=== PATIENT | male | born 1950 | race Caucasian/White ===

== ENCOUNTER 2017-11-08 17:09 | Observation (INO) ==
[2017-11-08] MEDS ORDERED: SODIUM CHLORIDE 0.9% 500 ML IV STA (18:42)
[2017-11-08 19:08] LABS: Basophils # 0.1 10*3/uL (0.0-0.2); Basophils % 0.5 % (0.0-0.8); Eosinophils # 0.2 10*3/uL (0.0-0.87); Eosinophils % 1.6 % (0.00-10.9); Hematocrit 36.3 VOL% (42.0-52.0); Hemoglobin 12.1 GM/DL (14.0-18.0); Immature Granulocytes % 0.6 %; Immature Granulocytes Absolute 0.06 #; Lymphocytes # 1.6 10*3/uL (1.4-4.0); Lymphocytes % 17.5 % (21.2-54.2); Mean Corpuscular HGB Conc 33.3 GM/DL (32-36); Mean Corpuscular Hemoglobin 31 PG (27-34); Mean Corpuscular Volume 92.4 FL (87-102); Mean Platelet Volume 10.1 FL (9.6-12.0); Monocytes # 0.6 10*3/uL (0.11-0.8); Monocytes % 6.3 % (1.7-12.7); Neutrophils # 6.8 10*3/uL (1.4-7.4); Neutrophils % 73.5 % (38.7-73.9); Platelet Count 356 T/CUMM (130-400); Red Blood Count 3.93 MC/CUMM (3.8-5.5); Red Cell Distribution Width 12.8 % (9.3-17.3); White Blood Count 9.3 T/CUMM (4-12)
[2017-11-08 19:14] LABS: INR 1.1; PT Patient Result 11.1 SECS
[2017-11-08 19:25] LABS: Alanine Aminotransferase 23 U/L (16-61); Albumin 3.2 G/DL (3.4-5.0); Alkaline Phosphatase 111 U/L (45-117); Aspartate Amino Transferase 30 U/L (0-37); Blood Urea Nitrogen 24 MG/DL (7-18); Calcium 9.1 MG/DL (8.5-10.1); Glucose 112 MG/DL (74-106); Osmolality,Calculated 287.1 MOS/KG (273-304); Potassium 3.4 MMOL/L (3.5-5.1); Sodium 142 MMOL/L (136-145); Total Protein 7.9 G/DL (6.4-8.3); Troponin I < 0.015 NG/ML (0.00-0.045)
[2017-11-08 21:01] LABS: Ammonia 17 UMOL/L (11-32)
[2017-11-08 21:10] LABS: Lactic Acid 2.4 MMOL/L (0.4-2.0)
[2017-11-08 21:34] LABS: Apearance,Urine CLEAR (Clear); Bilirubin,Urine Negative (Negative); Blood, Urine Negative (Negative); Glucose,Urine (UA) Negative (Negative); Ketones,Urine Negative (Negative); Nitrite,Urine Negative (Negative); Protein,Urine Negative; RBC,Urine 1 /HPF (0-4); Squamous Epithelial Cell,Urine Occasional /HPF (0-10); Urine Color Yellow (Yellow); Urine Specific Gravity 1.016 (1.001-1.035); WBC,Urine 1 /HPF (0-6)
[2017-11-08 21:54] LABS: Barbiturates Screen,Urine Negative (Negative); Benzodiazepines Screen,Urine Negative (Negative); Cannabinoid Screen,Urine Negative (Negative); Opiate Screen,Urine Negative (Negative); Phencyclidine Screen,Urine Negative (Negative)
[2017-11-09] MEDS ORDERED: ACETAMINOPHEN 325 MG TABLET PO PRN (00:41)
[2017-11-09] MEDS ORDERED: ONDANSETRON 4 MG/2 ML VIAL IV PRN (00:41)
[2017-11-09] MEDS ORDERED: ZALEPLON 5 MG CAPSULE PO PRN (00:41)
[2017-11-09] MEDS ORDERED: POTASSIUM CHLORIDE 20 MEQ TABLET PO ONE (01:00)
[2017-11-09] MEDS: PARoxetine 20 MG TABLET PO SCH ×2 (01:22→21:02)
[2017-11-09] MEDS: SODIUM CHLORIDE 0.9% 1,000 ML IV SCH ×3 (01:22→21:01)
[2017-11-09] MEDS: OLANZapine 5 MG TABLET PO SCH ×2 (01:22→21:02)
[2017-11-09 03:18] LABS: Basophils % 0.2 % (0.0-0.8); Eosinophils % 0.2 % (0.00-10.9); Hematocrit 29.7 VOL% (42.0-52.0); Immature Granulocytes % 0.3 %; Immature Granulocytes Absolute 0.03 #; Lymphocytes # 1.7 10*3/uL (1.4-4.0); Lymphocytes % 19.4 % (21.2-54.2); Mean Corpuscular HGB Conc 33.7 GM/DL (32-36); Mean Corpuscular Hemoglobin 30 PG (27-34); Mean Corpuscular Volume 89.7 FL (87-102); Monocytes # 0.7 10*3/uL (0.11-0.8); Monocytes % 8.3 % (1.7-12.7); Neutrophils # 6.2 10*3/uL (1.4-7.4); Neutrophils % 71.6 % (38.7-73.9); Platelet Count 280 T/CUMM (130-400); Red Blood Count 3.31 MC/CUMM (3.8-5.5); White Blood Count 8.7 T/CUMM (4-12)
[2017-11-09 03:34] LABS: Calcium 8.2 MG/DL (8.5-10.1); Osmolality,Calculated 285.4 MOS/KG (273-304); Potassium 3.8 MMOL/L (3.5-5.1)
[2017-11-09] MEDS: ENOXAPARIN 40 MG/0.4 ML SYRINGE SUBCUT SCH (08:55)
[2017-11-09] MEDS: CHOLECALCIFEROL 1,000 UNIT TABLET PO SCH (08:55)
[2017-11-09] MEDS: busPIRone 5 MG TABLET PO SCH ×3 (08:55→21:02)
[2017-11-09] MEDS: PANTOPRAZOLE 40 MG TABLET PO SCH (08:55)
[2017-11-10] MEDS: SODIUM CHLORIDE 0.9% 1,000 ML IV SCH (04:14)
[2017-11-10] MEDS: PANTOPRAZOLE 40 MG TABLET PO SCH (09:02)
[2017-11-10] MEDS: busPIRone 5 MG TABLET PO SCH (09:02)
[2017-11-10] MEDS: CHOLECALCIFEROL 1,000 UNIT TABLET PO SCH (09:02)
[2017-11-10] MEDS: ENOXAPARIN 40 MG/0.4 ML SYRINGE SUBCUT SCH (09:02)
[2017-11-10 12:23] VITALS: BP 146/80
== END 2017-11-10 16:21 | disposition home health service (06) ==
LOC: N.ED 17:09 → N.EDINP 17:09 → N.4E 23:57
PROVIDERS: ADMIT Hospitalist; ATTEND Hospitalist

== ENCOUNTER 2017-12-31 15:14 | Inpatient (IN) ==
[2017-12-31] MEDS ORDERED: SODIUM CHLORIDE 0.9% 1,000 ML IV ONE (18:16)
[2017-12-31 19:00] LABS: Basophils % 0.2 % (0.0-0.8); Eosinophils % 0.1 % (0.00-10.9); Hematocrit 27.9 VOL% (42.0-52.0); Hemoglobin 9.1 GM/DL (14.0-18.0); Immature Granulocytes % 0.5 %; Immature Granulocytes Absolute 0.08 #; Lymphocytes # 0.9 10*3/uL (1.4-4.0); Lymphocytes % 6.1 % (21.2-54.2); Mean Corpuscular HGB Conc 32.6 GM/DL (32-36); Mean Corpuscular Hemoglobin 29 PG (27-34); Mean Platelet Volume 9.1 FL (9.6-12.0); Monocytes # 0.9 10*3/uL (0.11-0.8); Monocytes % 5.8 % (1.7-12.7); Neutrophils # 13.4 10*3/uL (1.4-7.4); Neutrophils % 87.3 % (38.7-73.9); Platelet Count 291 T/CUMM (130-400); Red Blood Count 3.17 MC/CUMM (3.8-5.5); Red Cell Distribution Width 12.4 % (9.3-17.3); White Blood Count 15.3 T/CUMM (4-12)
[2017-12-31 19:24] LABS: Bilirubin,Total 0.7 MG/DL (0.2-1.0); Calcium 8.3 MG/DL (8.5-10.1); Osmolality,Calculated 267.4 MOS/KG (273-304); Potassium 3.4 MMOL/L (3.5-5.1); Total Protein 7.1 G/DL (6.4-8.3)
[2017-12-31 19:25] LABS: Lactic Acid 1.3 MMOL/L (0.4-2.0)
[2017-12-31 19:35] LABS: Band Neutrophils 2 % (0-10); Eosinophils 1 % (0-10); Hypochromasia Slight; Lymphocytes 7 % (20-55); Platelet Estimate Adequate; Segmented Neutrophils 87 % (50-85); Total Cells Counted 100
[2017-12-31 20:28] LABS: Apearance,Urine CLOUDY (Clear); Bacteria,Urine Many /HPF (Few); Bilirubin,Urine Negative (Negative); Blood, Urine Large mg/dL (Negative); Glucose,Urine (UA) Negative (Negative); Ketones,Urine Negative (Negative); Mucus,Urine Occasional /LPF (Occasional); Nitrite,Urine Negative (Negative); Protein,Urine 100 MG/DL; RBC,Urine 917 /HPF (0-4); Urine Color Dark yellow (Yellow); Urine Specific Gravity 1.017 (1.001-1.035); WBC,Urine 770 /HPF (0-6)
[2017-12-31] MEDS ORDERED: CLINDAMYCIN INJ 600 MG in PREMIX 1 EACH IV STA (20:34)
[2017-12-31] MEDS ORDERED: ZALEPLON 5 MG CAPSULE PO PRN (22:35)
[2018-01-01] MEDS: PARoxetine 20 MG TABLET PO SCH ×2 (00:02→21:31)
[2018-01-01] MEDS: ENOXAPARIN 40 MG/0.4 ML SYRINGE SUBCUT SCH (00:02)
[2018-01-01] MEDS: VANCOMYCIN INJ 1,000 MG in SODIUM CHLORIDE 0.9% 250 ML IV SCH ×2 (00:02→09:41)
[2018-01-01] MEDS: OLANZapine 5 MG TABLET PO SCH ×2 (00:07→21:30)
[2018-01-01] MEDS: PIPERACILLIN/TAZOBACTAM 3,375 MG in SODIUM CHLORIDE 0.9% 100 ML IV SCH ×4 (01:40→21:30)
[2018-01-01 07:22] LABS: Basophils % 0.2 % (0.0-0.8); Eosinophils % 0.1 % (0.00-10.9); Hematocrit 26.9 VOL% (42.0-52.0); Hemoglobin 8.8 GM/DL (14.0-18.0); Immature Granulocytes % 1.1 %; Immature Granulocytes Absolute 0.12 #; Lymphocytes # 0.9 10*3/uL (1.4-4.0); Lymphocytes % 7.6 % (21.2-54.2); Mean Corpuscular HGB Conc 32.7 GM/DL (32-36); Mean Corpuscular Hemoglobin 29 PG (27-34); Mean Corpuscular Volume 89.4 FL (87-102); Mean Platelet Volume 9.2 FL (9.6-12.0); Monocytes # 0.6 10*3/uL (0.11-0.8); Monocytes % 5.4 % (1.7-12.7); Neutrophils # 9.6 10*3/uL (1.4-7.4); Neutrophils % 85.6 % (38.7-73.9); Platelet Count 253 T/CUMM (130-400); Red Blood Count 3.01 MC/CUMM (3.8-5.5); Red Cell Distribution Width 12.6 % (9.3-17.3); White Blood Count 11.2 T/CUMM (4-12)
[2018-01-01 07:49] LABS: Albumin 1.8 G/DL (3.4-5.0); Bilirubin,Total 0.8 MG/DL (0.2-1.0); Calcium 8.3 MG/DL (8.5-10.1); Potassium 3.1 MMOL/L (3.5-5.1); Total Protein 6.6 G/DL (6.4-8.3)
[2018-01-01 07:58] LABS: Hypochromasia 1+; Lymphocytes 3 % (20-55); Ovalocytes Slight; Platelet Estimate Adequate; Segmented Neutrophils 92 % (50-85); Total Cells Counted 100
[2018-01-01] MEDS: busPIRone 10 MG TABLET PO SCH ×3 (09:40→21:30)
[2018-01-01] MEDS: amLODIPine 10 MG TABLET PO SCH (09:40)
[2018-01-01] MEDS: CHOLECALCIFEROL 1,000 UNIT TABLET PO SCH (09:40)
[2018-01-01] MEDS ORDERED: SKIN HEALING OINT (AQUAPHOR) 50 GM TUBE TOP PRN (14:57)
[2018-01-01] MEDS: POTASSIUM CHLORIDE 20 MEQ TABLET PO SCH (21:31)
[2018-01-02] MEDS: PIPERACILLIN/TAZOBACTAM 3,375 MG in SODIUM CHLORIDE 0.9% 100 ML IV SCH ×3 (05:04→21:06)
[2018-01-02 05:56] LABS: Calcium 7.9 MG/DL (8.5-10.1); Osmolality,Calculated 275.7 MOS/KG (273-304)
[2018-01-02] MEDS ORDERED: LIDOCAINE 1%/EPI INJ 20 ML VIAL ONE ×3 (08:54→09:51)
[2018-01-02] MEDS ORDERED: POTASSIUM CHLORIDE RIDER 200 ML IV ONE (09:00)
[2018-01-02] MEDS ORDERED: PROPOFOL 200 MG/20 ML VIAL IV ONE (10:28)
[2018-01-02] MEDS ORDERED: MIDAZOLAM 2 MG/2 ML VIAL ONE (10:29)
[2018-01-02] MEDS ORDERED: fentaNYL 100 MCG/2 ML VIAL ONE (10:29)
[2018-01-02] MEDS ORDERED: KETAMINE 500 MG/10 ML VIAL ONE (10:30)
[2018-01-02] MEDS: POTASSIUM CHLORIDE RIDER 100 ML IV SCH ×2 (10:32→12:16)
[2018-01-02] MEDS: busPIRone 10 MG TABLET PO SCH ×3 (12:24→21:06)
[2018-01-02] MEDS: CHOLECALCIFEROL 1,000 UNIT TABLET PO SCH (12:24)
[2018-01-02] MEDS: amLODIPine 10 MG TABLET PO SCH (12:24)
[2018-01-02] MEDS: SODIUM HYPOCHLORITE 0.25% IRRIG 473 ML BOTTLE TOP SCH (12:25)
[2018-01-02] MEDS: POTASSIUM CHLORIDE 20 MEQ TABLET PO SCH ×2 (12:25→21:06)
[2018-01-02] MEDS ORDERED: POTASSIUM CHLORIDE RIDER 10 MEQ in PREMIX 1 EACH IV PRN (15:27)
[2018-01-02] MEDS: PARoxetine 20 MG TABLET PO SCH (21:06)
[2018-01-02] MEDS: OLANZapine 5 MG TABLET PO SCH (21:19)
[2018-01-03] MEDS: ENOXAPARIN 40 MG/0.4 ML SYRINGE SUBCUT SCH ×2 (00:31→21:45)
[2018-01-03 04:58] LABS: Calcium 7.6 MG/DL (8.5-10.1); Osmolality,Calculated 276.5 MOS/KG (273-304); Potassium 3.4 MMOL/L (3.5-5.1)
[2018-01-03] MEDS: PIPERACILLIN/TAZOBACTAM 3,375 MG in SODIUM CHLORIDE 0.9% 100 ML IV SCH (05:17)
[2018-01-03] MEDS ORDERED: LIDOCAINE 1%/EPI INJ 20 ML VIAL ONE (08:28)
[2018-01-03] MEDS ORDERED: BUPIVACAINE 0.5% /EPI 10 ML VIAL ONE (08:28)
[2018-01-03] MEDS ORDERED: SEVOFLURANE 1 UNIT/15 MINUTE INH ONE (09:53)
[2018-01-03] MEDS ORDERED: fentaNYL 100 MCG/2 ML VIAL ONE (09:53)
[2018-01-03] MEDS ORDERED: PROPOFOL 200 MG/20 ML VIAL IV ONE (09:53)
[2018-01-03] MEDS ORDERED: ONDANSETRON 4 MG/2 ML VIAL ONE (09:53)
[2018-01-03] MEDS ORDERED: ETOMIDATE 40 MG/20 ML VIAL IV ONE (09:54)
[2018-01-03] MEDS ORDERED: SODIUM CHLORIDE 0.9% 100 ML IV ONE (09:54)
[2018-01-03] MEDS ORDERED: PHENYLEPHRINE 10 MG/1 ML VIAL IV ONE (09:54)
[2018-01-03] MEDS: busPIRone 10 MG TABLET PO SCH ×3 (10:43→21:45)
[2018-01-03] MEDS ORDERED: ceFAZolin 2,000 MG in PREMIX 1 EACH IV SCH (11:00)
[2018-01-03] MEDS: amLODIPine 10 MG TABLET PO SCH (11:29)
[2018-01-03] MEDS: POTASSIUM CHLORIDE 20 MEQ TABLET PO SCH ×2 (11:29→22:28)
[2018-01-03] MEDS: SODIUM HYPOCHLORITE 0.25% IRRIG 473 ML BOTTLE TOP SCH (11:29)
[2018-01-03] MEDS: CHOLECALCIFEROL 1,000 UNIT TABLET PO SCH (11:29)
[2018-01-03] MEDS: CIPROFLOXACIN INJ 400 MG in PREMIX 1 EACH IV SCH (12:28)
[2018-01-03] MEDS ORDERED: MAGNESIUM SULF RIDER 4 GM in PREMIX 1 EACH IV PRN (13:34)
[2018-01-03] MEDS ORDERED: MAGNESIUM SULF RIDER 2 GM in PREMIX 1 EACH IV PRN (13:34)
[2018-01-03] MEDS: AMPICILLIN/SULBACTAM 3,000 MG in SODIUM CHLORIDE 0.9% 100 ML IV SCH ×2 (15:24→21:44)
[2018-01-03] MEDS: ACETAMINOPHEN 325 MG TABLET PO PRN (17:45)
[2018-01-03] MEDS: PARoxetine 20 MG TABLET PO SCH (21:45)
[2018-01-03] MEDS: OLANZapine 5 MG TABLET PO SCH (21:46)
[2018-01-04] MEDS: CIPROFLOXACIN INJ 400 MG in PREMIX 1 EACH IV SCH ×2 (00:08→13:53)
[2018-01-04] MEDS: AMPICILLIN/SULBACTAM 3,000 MG in SODIUM CHLORIDE 0.9% 100 ML IV SCH ×4 (03:26→20:30)
[2018-01-04 08:30] LABS: Basophils % 0.2 % (0.0-0.8); Eosinophils # 0.1 10*3/uL (0.0-0.87); Eosinophils % 0.8 % (0.00-10.9); Hematocrit 22.8 VOL% (42.0-52.0); Hemoglobin 7.4 GM/DL (14.0-18.0); Immature Granulocytes % 0.7 %; Immature Granulocytes Absolute 0.07 #; Lymphocytes # 1.1 10*3/uL (1.4-4.0); Lymphocytes % 11.1 % (21.2-54.2); Mean Corpuscular HGB Conc 32.5 GM/DL (32-36); Mean Corpuscular Hemoglobin 29 PG (27-34); Mean Corpuscular Volume 90.5 FL (87-102); Mean Platelet Volume 9.3 FL (9.6-12.0); Monocytes # 0.6 10*3/uL (0.11-0.8); Monocytes % 5.6 % (1.7-12.7); Neutrophils # 8.3 10*3/uL (1.4-7.4); Neutrophils % 81.6 % (38.7-73.9); Platelet Count 296 T/CUMM (130-400); Red Blood Count 2.52 MC/CUMM (3.8-5.5); Red Cell Distribution Width 12.6 % (9.3-17.3); White Blood Count 10.1 T/CUMM (4-12)
[2018-01-04 08:56] LABS: Calcium 7.6 MG/DL (8.5-10.1); Osmolality,Calculated 275.5 MOS/KG (273-304); Potassium 3.5 MMOL/L (3.5-5.1)
[2018-01-04] MEDS: busPIRone 10 MG TABLET PO SCH ×3 (10:00→22:25)
[2018-01-04] MEDS: CHOLECALCIFEROL 1,000 UNIT TABLET PO SCH (10:00)
[2018-01-04] MEDS: POTASSIUM CHLORIDE 20 MEQ TABLET PO SCH ×2 (10:00→22:25)
[2018-01-04] MEDS: amLODIPine 10 MG TABLET PO SCH (10:00)
[2018-01-04] MEDS: SODIUM HYPOCHLORITE 0.25% IRRIG 473 ML BOTTLE TOP SCH (10:46)
[2018-01-04] MEDS ORDERED: SODIUM CHLORIDE 0.9% 1,000 ML IV PRN (11:24)
[2018-01-04] MEDS: ACETAMINOPHEN 325 MG TABLET PO PRN ×2 (14:48→17:24)
[2018-01-04 20:30] LABS: Hematocrit 24.1 VOL% (42.0-52.0); Hemoglobin 7.9 GM/DL (14.0-18.0)
[2018-01-04] MEDS: PARoxetine 20 MG TABLET PO SCH (22:25)
[2018-01-04] MEDS: OLANZapine 5 MG TABLET PO SCH (22:25)
[2018-01-04] MEDS: ENOXAPARIN 40 MG/0.4 ML SYRINGE SUBCUT SCH (22:26)
[2018-01-05] MEDS: CIPROFLOXACIN INJ 400 MG in PREMIX 1 EACH IV SCH ×2 (00:55→11:16)
[2018-01-05] MEDS: AMPICILLIN/SULBACTAM 3,000 MG in SODIUM CHLORIDE 0.9% 100 ML IV SCH ×4 (02:40→21:16)
[2018-01-05 06:14] LABS: Hematocrit 25.5 VOL% (42.0-52.0); Hemoglobin 8.4 GM/DL (14.0-18.0)
[2018-01-05 06:19] LABS: Basophils % 0.2 % (0.0-0.8); Eosinophils # 0.1 10*3/uL (0.0-0.87); Eosinophils % 0.8 % (0.00-10.9); Hematocrit 26.4 VOL% (42.0-52.0); Hemoglobin 8.4 GM/DL (14.0-18.0); Immature Granulocytes Absolute 0.12 #; Lymphocytes # 1.5 10*3/uL (1.4-4.0); Lymphocytes % 12.2 % (21.2-54.2); Mean Corpuscular HGB Conc 31.8 GM/DL (32-36); Mean Corpuscular Hemoglobin 29 PG (27-34); Mean Corpuscular Volume 89.8 FL (87-102); Mean Platelet Volume 9.2 FL (9.6-12.0); Monocytes # 0.7 10*3/uL (0.11-0.8); Monocytes % 5.7 % (1.7-12.7); Neutrophils # 9.7 10*3/uL (1.4-7.4); Neutrophils % 80.1 % (38.7-73.9); Platelet Count 330 T/CUMM (130-400); Red Blood Count 2.94 MC/CUMM (3.8-5.5); Red Cell Distribution Width 13.4 % (9.3-17.3); White Blood Count 12.2 T/CUMM (4-12)
[2018-01-05 06:23] LABS: Calcium 7.6 MG/DL (8.5-10.1); Osmolality,Calculated 276.4 MOS/KG (273-304)
[2018-01-05] MEDS: CHOLECALCIFEROL 1,000 UNIT TABLET PO SCH (09:07)
[2018-01-05] MEDS: busPIRone 10 MG TABLET PO SCH ×3 (09:07→21:17)
[2018-01-05] MEDS: POTASSIUM CHLORIDE 20 MEQ TABLET PO SCH ×2 (09:07→21:17)
[2018-01-05] MEDS: amLODIPine 10 MG TABLET PO SCH (09:07)
[2018-01-05] MEDS: SODIUM HYPOCHLORITE 0.25% IRRIG 473 ML BOTTLE TOP SCH (09:08)
[2018-01-05] MEDS: PARoxetine 20 MG TABLET PO SCH (21:17)
[2018-01-05] MEDS: OLANZapine 5 MG TABLET PO SCH (21:17)
[2018-01-05] MEDS: ENOXAPARIN 40 MG/0.4 ML SYRINGE SUBCUT SCH (21:17)
[2018-01-06] MEDS: CIPROFLOXACIN INJ 400 MG in PREMIX 1 EACH IV SCH ×2 (00:21→11:03)
[2018-01-06] MEDS: AMPICILLIN/SULBACTAM 3,000 MG in SODIUM CHLORIDE 0.9% 100 ML IV SCH ×4 (02:48→21:02)
[2018-01-06] MEDS: SODIUM HYPOCHLORITE 0.25% IRRIG 473 ML BOTTLE TOP SCH (07:40)
[2018-01-06] MEDS: POTASSIUM CHLORIDE 20 MEQ TABLET PO SCH ×2 (09:40→21:02)
[2018-01-06] MEDS: amLODIPine 10 MG TABLET PO SCH (09:40)
[2018-01-06] MEDS: busPIRone 10 MG TABLET PO SCH ×3 (09:40→21:02)
[2018-01-06] MEDS: ZINC SULFATE 220 MG CAPSULE PO SCH (09:40)
[2018-01-06] MEDS: CHOLECALCIFEROL 1,000 UNIT TABLET PO SCH (09:40)
[2018-01-06] MEDS: MULTIVITAMIN (BEROCCA) TABLET PO SCH (09:40)
[2018-01-06] MEDS: ENOXAPARIN 40 MG/0.4 ML SYRINGE SUBCUT SCH (21:01)
[2018-01-06] MEDS: PARoxetine 20 MG TABLET PO SCH (21:02)
[2018-01-06] MEDS: OLANZapine 5 MG TABLET PO SCH (21:02)
[2018-01-07] MEDS: CIPROFLOXACIN INJ 400 MG in PREMIX 1 EACH IV SCH ×2 (00:04→11:42)
[2018-01-07] MEDS: AMPICILLIN/SULBACTAM 3,000 MG in SODIUM CHLORIDE 0.9% 100 ML IV SCH ×4 (03:00→21:24)
[2018-01-07 05:42] LABS: Basophils # 0.1 10*3/uL (0.0-0.2); Basophils % 0.7 % (0.0-0.8); Eosinophils # 0.2 10*3/uL (0.0-0.87); Eosinophils % 2.2 % (0.00-10.9); Hematocrit 26.4 VOL% (42.0-52.0); Hemoglobin 8.2 GM/DL (14.0-18.0); Immature Granulocytes Absolute 0.07 #; Lymphocytes # 1.3 10*3/uL (1.4-4.0); Lymphocytes % 18.2 % (21.2-54.2); Mean Corpuscular HGB Conc 31.1 GM/DL (32-36); Mean Corpuscular Hemoglobin 28 PG (27-34); Mean Corpuscular Volume 90.4 FL (87-102); Mean Platelet Volume 8.7 FL (9.6-12.0); Monocytes # 0.5 10*3/uL (0.11-0.8); Monocytes % 6.8 % (1.7-12.7); Neutrophils # 4.9 10*3/uL (1.4-7.4); Neutrophils % 71.1 % (38.7-73.9); Platelet Count 357 T/CUMM (130-400); Red Blood Count 2.92 MC/CUMM (3.8-5.5); Red Cell Distribution Width 13.2 % (9.3-17.3); White Blood Count 6.9 T/CUMM (4-12)
[2018-01-07 05:59] LABS: Albumin 1.5 G/DL (3.4-5.0); Bilirubin,Total 0.4 MG/DL (0.2-1.0); Calcium 7.7 MG/DL (8.5-10.1); Osmolality,Calculated 274.7 MOS/KG (273-304); Potassium 4.2 MMOL/L (3.5-5.1); Total Protein 6.6 G/DL (6.4-8.3)
[2018-01-07] MEDS: CHOLECALCIFEROL 1,000 UNIT TABLET PO SCH (09:40)
[2018-01-07] MEDS: MULTIVITAMIN (BEROCCA) TABLET PO SCH (09:40)
[2018-01-07] MEDS: POTASSIUM CHLORIDE 20 MEQ TABLET PO SCH ×2 (09:40→21:23)
[2018-01-07] MEDS: ZINC SULFATE 220 MG CAPSULE PO SCH (09:40)
[2018-01-07] MEDS: busPIRone 10 MG TABLET PO SCH ×3 (09:40→21:24)
[2018-01-07] MEDS: amLODIPine 10 MG TABLET PO SCH (09:40)
[2018-01-07] MEDS: SODIUM HYPOCHLORITE 0.25% IRRIG 473 ML BOTTLE TOP SCH (18:25)
[2018-01-07] MEDS: OLANZapine 5 MG TABLET PO SCH (21:23)
[2018-01-07] MEDS: ENOXAPARIN 40 MG/0.4 ML SYRINGE SUBCUT SCH (21:23)
[2018-01-07] MEDS: PARoxetine 20 MG TABLET PO SCH (21:24)
[2018-01-08] MEDS: CIPROFLOXACIN INJ 400 MG in PREMIX 1 EACH IV SCH (00:08)
[2018-01-08] MEDS: AMPICILLIN/SULBACTAM 3,000 MG in SODIUM CHLORIDE 0.9% 100 ML IV SCH ×2 (02:40→08:23)
[2018-01-08] MEDS: MULTIVITAMIN (BEROCCA) TABLET PO SCH (08:22)
[2018-01-08] MEDS: amLODIPine 10 MG TABLET PO SCH (08:23)
[2018-01-08] MEDS: busPIRone 10 MG TABLET PO SCH (08:23)
[2018-01-08] MEDS: POTASSIUM CHLORIDE 20 MEQ TABLET PO SCH (08:23)
[2018-01-08] MEDS: CHOLECALCIFEROL 1,000 UNIT TABLET PO SCH (08:23)
[2018-01-08] MEDS: ZINC SULFATE 220 MG CAPSULE PO SCH (09:07)
[2018-01-08] MEDS: SODIUM HYPOCHLORITE 0.25% IRRIG 473 ML BOTTLE TOP SCH (12:01)
[2018-01-08 12:15] VITALS: BP 103/72
[2018-01-08] MEDS ORDERED: ERTAPENEM 1,000 MG in SODIUM CHLORIDE 0.9% 100 ML IV SCH (17:00)
== END 2018-01-08 13:01 | DRG 853 ==
LOC: N.ED 15:14 → N.EDINP 20:59 → N.2E 21:22
PROVIDERS: ADMIT Internal Medicine Infectious Disease; ATTEND Internal Medicine Infectious Disease